=== PATIENT | female | born 1985 ===

== ENCOUNTER 2021-07-06 17:24 | Emergency (ER) | payer OTHER ==
[~2021-07-06] VITALS: Ht 152.4 cm; Wt 68.0 kg
[2021-07-06] MEDS ORDERED: MACRODANTIN100 M1 PO (21:44)
== END 2021-07-06 21:52 | disposition home or self-care (01) ==
LOC: ER 17:24
DX: O20.8 Other hemorrhage in early pregnancy (principal); Z3A.01 Less than 8 weeks gestation of pregnancy

== ENCOUNTER 2021-07-23 18:27 | Inpatient (IN) | payer OTHER ==
[~2021-07-23] VITALS: Ht 152.4 cm; Wt 65.3 kg
[~2021-07-23 18:27] MED LIST: MACRODANTIN100 M1 PO
== END 2021-07-24 09:25 | disposition home or self-care (01) | DRG 818 ==
LOC: ER 18:27 → O/R 20:22 → SEC-K 20:22 → O/R 07-24 07:12
PROVIDERS: ADMIT Obstetrics & Gynecology; ATTEND Obstetrics & Gynecology
PROC: 10T24ZZ Resection of Products of Conception, Ectopic, Percutaneous Endoscopic Approach (ICD-10-PCS; principal; 2021-07-24)
PROC: 0UB64ZZ Excision of Left Fallopian Tube, Percutaneous Endoscopic Approach (ICD-10-PCS; 2021-07-24)
PROC: 0UDB7ZZ Extraction of Endometrium, Via Natural or Artificial Opening (ICD-10-PCS; 2021-07-24)
DX: O00.102 Left tubal pregnancy without intrauterine pregnancy (principal); O08.1 Delayed or excessive hemorrhage following ectopic and molar pregnancy; O08.89 Other complications following an ectopic and molar pregnancy